=== PATIENT | male | born 1960 | race Caucasian/White ===

== ENCOUNTER 2020-11-11 12:18 | Inpatient (IN) | payer OTHER ==
[2020-11-11 15:17] LABS: BASO % 2.1 % (0-2.0); EOS % 2.6 % (0-4.5); HEMATOCRIT 33.3 % (35.4-49); HEMOGLOBIN 10.8 GM/dL (11.7-16.9); LYMPH % 19.4 % (8-40); MCH 28.1 pg (25.7-33.7); MCHC 32.5 g/dl (32.0-35.9); MEAN CELL VOLUME 86.4 fl (80-96); MEAN PLT VOLUME 9.3 fl (7.5-11.1); MONO % 5.6 % (3.8-10.2); NEUT % 70.3 % (42.8-82.8); PLATELET COUNT 221 K/MM3 (134-434); RBC 3.85 M/mm3 (4.00-5.60)
[2020-11-11 15:25] LABS: INR 1.07 (0.83-1.09); PROTHROMBIN TIME (PATIENT) 12.9 SEC (9.7-13.0)
[2020-11-11 15:27] LABS: ACTIVATED PTT 23.9 SECONDS (25.2-36.5)
[2020-11-11 15:48] LABS: CHLORIDE 98 mmol/L (98-107); POTASSIUM 4.7 mmol/L (3.5-5.1); SODIUM 134 mmol/L (136-145)
[2020-11-11 15:53] LABS: CALCIUM 8.2 mg/dL (8.5-10.1)
[2020-11-11 15:54] LABS: ALBUMIN 2.8 g/dl (3.4-5.0); ANION GAP 9 MMOL/L (8-16); BLOOD UREA NITROGEN 19.6 mg/dL (7-18); CO2 27 mmol/L (21-32); GLUCOSE,RANDOM 263 mg/dL (74-106); MAGNESIUM 2.6 mg/dL (1.8-2.4)
[2020-11-11 15:57] LABS: CREATININE 7.1 mg/dL (0.55-1.3); SGOT/AST 23 U/L (15-37); SGPT/ALT 17 U/L (13-61)
[2020-11-11 15:58] LABS: BILIRUBIN,TOTAL 0.6 mg/dL (0.2-1); TOT PROT 7.2 g/dl (6.4-8.2)
[2020-11-11 15:59] LABS: ALK PHOS 278 U/L (45-117)
[2020-11-11] MEDS ORDERED: ACETAMINOPHEN 325 MG TABLET (FP) PO ONE (23:22)
[2020-11-11] MEDS ORDERED: ACETAMINOPHEN 325 MG TABLET (FP) ONE (23:39)
[2020-11-12 05:59] VITALS: BMI 31.1
[2020-11-12 09:04] LABS: POTASSIUM 4.9 mmol/L (3.5-5.1)
[2020-11-12 09:06] LABS: CALCIUM 8.7 mg/dL (8.5-10.1)
[2020-11-12 09:07] LABS: ALBUMIN 2.9 g/dl (3.4-5.0); BLOOD UREA NITROGEN 29.4 mg/dL (7-18)
[2020-11-12 09:11] LABS: BILIRUBIN,TOTAL 0.5 mg/dL (0.2-1)
[2020-11-12 09:20] LABS: CREATININE 9.3 mg/dL (0.55-1.3)
[2020-11-12 09:56] LABS: BASO % 2.9 % (0-2.0); HEMATOCRIT 34.7 % (35.4-49); HEMOGLOBIN 11.5 GM/dL (11.7-16.9); LYMPH % 27.6 % (8-40); MCH 28.6 pg (25.7-33.7); MCHC 33.1 g/dl (32.0-35.9); MEAN CELL VOLUME 86.5 fl (80-96); MEAN PLT VOLUME 9.1 fl (7.5-11.1); MONO % 8.4 % (3.8-10.2); NEUT % 57.1 % (42.8-82.8); PLATELET COUNT 207 K/MM3 (134-434); RBC 4.01 M/mm3 (4.00-5.60); WHITE BLOOD COUNT 6.3 K/mm3 (4.0-10.0)
[2020-11-12] MEDS ORDERED: traMADol HCL 50 MG TABLET PO PRN (12:12)
[2020-11-12] MEDS: SEVELAMER CARBONATE 800 MG TAB (FP) PO SCH ×2 (13:19→17:15)
[2020-11-12] MEDS: GABAPENTIN 300 MG CAPSULE PO SCH ×2 (13:19→21:27)
[2020-11-12] MEDS ORDERED: SODIUM CHLORIDE 250 ML IV PRN (13:34)
[2020-11-12] MEDS: INSULIN SLIDING SCALE (NOVOLOG) 1 VIAL SQ SCH ×2 (15:46→21:30)
[2020-11-12] MEDS: INSULIN (LEVEMIR) 100 UNITS/ML UNITS SQ SCH (21:29)
[2020-11-12] MEDS: ATORVASTATIN CA 10 MG TABLET (FP) PO SCH (21:30)
[2020-11-12] MEDS: DONEPEZIL HCL 10 MG TABLET (FP) PO SCH (21:30)
[2020-11-13] MEDS: GABAPENTIN 300 MG CAPSULE PO SCH ×3 (06:35→22:32)
[2020-11-13] MEDS: INSULIN SLIDING SCALE (NOVOLOG) 1 VIAL SQ SCH ×4 (06:36→22:37)
[2020-11-13] MEDS: INSULIN (LEVEMIR) 100 UNITS/ML UNITS SQ SCH ×2 (06:51→22:37)
[2020-11-13] MEDS: SEVELAMER CARBONATE 800 MG TAB (FP) PO SCH ×3 (10:25→16:40)
[2020-11-13 10:36] LABS: CHOLESTEROL 99 mg/dL (50-200); LDL CHOLESTEROL (ONLY SJRH) 28 mg/dL (5-100); TRIGLYCERIDES 234 mg/dL (0-150)
[2020-11-13 10:40] LABS: HDL CHOLESTEROL 35 mg/dL (40-60)
[2020-11-13] MEDS: ASPIRIN 81 MG CHEWABLE TABLETS PO SCH (13:17)
[2020-11-13] MEDS: PANTOPRAZOLE 20 MG TABLET PO SCH (13:19)
[2020-11-13] MEDS: ATORVASTATIN CA 10 MG TABLET (FP) PO SCH (22:32)
[2020-11-13] MEDS: DONEPEZIL HCL 10 MG TABLET (FP) PO SCH (22:32)
[2020-11-14] MEDS: GABAPENTIN 300 MG CAPSULE PO SCH ×2 (07:00→13:38)
[2020-11-14] MEDS: INSULIN (LEVEMIR) 100 UNITS/ML UNITS SQ SCH (07:00)
[2020-11-14] MEDS: INSULIN SLIDING SCALE (NOVOLOG) 1 VIAL SQ SCH ×2 (07:01→11:20)
[2020-11-14] MEDS: SEVELAMER CARBONATE 800 MG TAB (FP) PO SCH ×2 (08:28→11:47)
[2020-11-14] MEDS: PANTOPRAZOLE 20 MG TABLET PO SCH (10:15)
[2020-11-14] MEDS: ASPIRIN 81 MG CHEWABLE TABLETS PO SCH (10:15)
[2020-11-14] MEDS ORDERED: HEPARIN NA (PORCINE) 5,000 UNITS/ML 1ML VIAL ONE ×2 (12:25→13:53)
[2020-11-14] MEDS ORDERED: LIDOCAINE HCL 1%, 10 MG/ML (20ML VIAL) ONE (12:25)
[2020-11-14] MEDS ORDERED: MIDAZOLAM HCL 2 MG/2 ML SINGLE DOSE VIAL ONE (13:23)
[2020-11-14] MEDS ORDERED: PROPOFOL 20 ML ONE (13:23)
[2020-11-14] MEDS ORDERED: ceFAZolin SODIUM 1 GM VIAL ONE (13:41)
[2020-11-14] MEDS ORDERED: LIDOCAINE HCL 1%, 10 MG/ML (20ML VIAL) INF ONE (13:45)
[2020-11-14] MEDS ORDERED: IOVERSOL 320 MG/ML ML IV ONE (13:45)
[2020-11-14] MEDS ORDERED: traMADol HCL 50 MG TABLET PO PRN (14:21)
[2020-11-14] MEDS ORDERED: oxyCODONE HCL 5 MG TABLET PO PRN (14:58)
[2020-11-14] MEDS ORDERED: ONDANSETRON 4 MG/2 ML VIAL IVPUSH PRN (14:58)
[2020-11-14] MEDS ORDERED: INSULIN SLIDING SCALE (NOVOLOG) 1 VIAL SQ SCH (16:30)
[2020-11-14] MEDS ORDERED: SEVELAMER CARBONATE 800 MG TAB (FP) PO SCH (17:30)
[2020-11-14 17:40] VITALS: BP 161/89; PULSE 75; TEMP 98.1
[2020-11-14 20:07] LABS: HEP B CORE AB, TOT Negative (Negative)
[2020-11-14] MEDS ORDERED: ATORVASTATIN CA 10 MG TABLET (FP) PO SCH (22:00)
[2020-11-14] MEDS ORDERED: INSULIN (LEVEMIR) 100 UNITS/ML UNITS SQ SCH (22:00)
[2020-11-14] MEDS ORDERED: DONEPEZIL HCL 10 MG TABLET (FP) PO SCH (22:00)
[2020-11-14] MEDS ORDERED: GABAPENTIN 300 MG CAPSULE PO SCH (22:00)
[2020-11-15] MEDS ORDERED: PANTOPRAZOLE 20 MG TABLET PO SCH (10:00)
[2020-11-15] MEDS ORDERED: ASPIRIN 81 MG CHEWABLE TABLETS PO SCH (10:00)
== END 2020-11-14 18:39 | disposition home or self-care (01) | DRG 299 ==
LOC: JER 12:18 → JERBED 19:41 → J6S 11-12 05:38
PROVIDERS: ADMIT Internal Medicine; ATTEND Family Medicine
PROC: 5A1D70Z Performance of Urinary Filtration, Intermittent, Less than 6 Hours Per Day (ICD-10-PCS; principal; 2020-11-13)
DX: E11.51 Type 2 diabetes mellitus with diabetic peripheral angiopathy without gangrene (principal); N18.6 End stage renal disease; I12.0 Hypertensive chronic kidney disease with stage 5 chronic kidney disease or end stage renal disease; I10 Essential (primary) hypertension; E78.5 Hyperlipidemia, unspecified; I70.202 Unspecified atherosclerosis of native arteries of extremities, left leg; M14.679 Charcot's joint, unspecified ankle and foot; E11.22 Type 2 diabetes mellitus with diabetic chronic kidney disease; Z99.2 Dependence on renal dialysis; Z89.511 Acquired absence of right leg below knee; Z20.822 Contact with and (suspected) exposure to COVID-19
CPT/HCPCS: 36415; 71045-TC-FY; 76000-TC-FY; 80053; 80061; 82550; 82962; 83036; 83721; 83735; 84484; 85025; 85610; 85730; 86704; 86706; 86707; 86708; 86709; 86803; 86850; 86900; 86901; 87340; 93005; 93010; 94760; 99285-25; C9803; G0463-25; J1644; U0003

== ENCOUNTER 2020-11-21 04:30 | Inpatient (IN) | payer OTHER ==
[2020-11-20 15:46] VITALS: BMI 31.0
[2020-11-21] MEDS ORDERED: PROPOFOL 20 ML ONE (09:08)
[2020-11-21] MEDS ORDERED: MIDAZOLAM HCL 2 MG/2 ML SINGLE DOSE VIAL ONE ×2 (09:08→11:03)
[2020-11-21] MEDS ORDERED: ceFAZolin SODIUM 1 GM VIAL ONE (09:58)
[2020-11-21] MEDS ORDERED: PATIENT'S OWN MEDICATION (NON-FORMULARY) (Insulin Glargine,Hum.Rec.Anlog [Basaglar Kwikpen SQ SCH (10:00)
[2020-11-21] MEDS ORDERED: POVIDONE-IODINE OINTMENT 10% - 28.4 GM TUBE ONE (10:22)
[2020-11-21] MEDS ORDERED: oxyCODONE HCL 5 MG TABLET PO PRN (10:24)
[2020-11-21] MEDS ORDERED: ONDANSETRON 4 MG/2 ML VIAL IVPUSH PRN ×2 (10:24→12:35)
[2020-11-21] MEDS ORDERED: GABAPENTIN 300 MG CAPSULE PO SCH (14:00)
[2020-11-21 14:43] LABS: BASO % 0.9 % (0-2.0); EOS % 1.7 % (0-4.5); HEMATOCRIT 37.6 % (35.4-49); HEMOGLOBIN 12.1 GM/dL (11.7-16.9); LYMPH % 17.1 % (8-40); MCH 28.5 pg (25.7-33.7); MCHC 32.3 g/dl (32.0-35.9); MEAN CELL VOLUME 88.5 fl (80-96); MEAN PLT VOLUME 9.6 fl (7.5-11.1); MONO % 4.3 % (3.8-10.2); PLATELET COUNT 183 K/MM3 (134-434); RBC 4.25 M/mm3 (4.00-5.60); RDW 15.9 % (11.9-15.9); WHITE BLOOD COUNT 10.8 K/mm3 (4.0-10.0)
[2020-11-21] MEDS ORDERED: HYDROmorphone HCl 2 MG/ML VIAL ONE (16:28)
[2020-11-21] MEDS: HYDROmorphone HCl 2 MG/ML VIAL IVPUSH PRN ×4 (16:30→17:00)
[2020-11-21] MEDS: GABAPENTIN 300 MG CAPSULE PO SCH ×2 (17:31→21:04)
[2020-11-21] MEDS ORDERED: morphine SULFATE 4 MG/ML VIAL ONE (17:47)
[2020-11-21] MEDS: SEVELAMER CARBONATE 800 MG TAB (FP) PO SCH (20:21)
[2020-11-21] MEDS: ATORVASTATIN CA 10 MG TABLET (FP) PO SCH (21:04)
[2020-11-21] MEDS: DONEPEZIL HCL 10 MG TABLET (FP) PO SCH (21:04)
[2020-11-21] MEDS: ASPIRIN 81 MG CHEWABLE TABLETS PO SCH (21:04)
[2020-11-21] MEDS: oxyCODONE HCL 5 MG TABLET PO PRN (21:04)
[2020-11-21] MEDS ORDERED: DONEPEZIL HCL 10 MG TABLET (FP) PO SCH (22:00)
[2020-11-21] MEDS ORDERED: ASPIRIN 81 MG CHEWABLE TABLETS PO SCH (22:00)
[2020-11-21] MEDS ORDERED: ATORVASTATIN CA 10 MG TABLET (FP) PO SCH (22:00)
[2020-11-21] MEDS: morphine SULFATE 4 MG/ML VIAL IVPUSH PRN (23:37)
[2020-11-22] MEDS: oxyCODONE HCL 5 MG TABLET PO PRN ×2 (05:34→21:17)
[2020-11-22] MEDS: GABAPENTIN 300 MG CAPSULE PO SCH ×3 (05:34→21:17)
[2020-11-22] MEDS: INSULIN (LEVEMIR) 100 UNITS/ML UNITS SQ SCH (06:30)
[2020-11-22] MEDS: morphine SULFATE 4 MG/ML VIAL IVPUSH PRN ×3 (07:25→23:52)
[2020-11-22] MEDS ORDERED: FAMOTIDINE 20 MG/50 ML IVPB 20 MG/50 ML MG IVPB ONE (07:55)
[2020-11-22] MEDS: SEVELAMER CARBONATE 800 MG TAB (FP) PO SCH ×3 (08:34→17:56)
[2020-11-22 08:59] LABS: EOS % 0.3 % (0-4.5); HEMATOCRIT 34.1 % (35.4-49); LYMPH % 9.8 % (8-40); MCH 28.8 pg (25.7-33.7); MCHC 32.3 g/dl (32.0-35.9); MEAN CELL VOLUME 89.3 fl (80-96); MEAN PLT VOLUME 10.1 fl (7.5-11.1); NEUT % 79.9 % (42.8-82.8); PLATELET COUNT 171 K/MM3 (134-434); RBC 3.82 M/mm3 (4.00-5.60); RDW 16.2 % (11.9-15.9); WHITE BLOOD COUNT 10.2 K/mm3 (4.0-10.0)
[2020-11-22 09:33] LABS: BLOOD UREA NITROGEN 43.8 mg/dL (7-18); CALCIUM 8.1 mg/dL (8.5-10.1)
[2020-11-22 09:43] LABS: CREATININE 11.1 mg/dL (0.55-1.3)
[2020-11-22] MEDS ORDERED: SODIUM CHLORIDE 250 ML IV PRN (09:48)
[2020-11-22] MEDS ORDERED: PANTOPRAZOLE 20 MG TABLET PO SCH (10:00)
[2020-11-22] MEDS: ACETAMINOPHEN 325 MG TABLET (FP) PO PRN (12:02)
[2020-11-22] MEDS: PANTOPRAZOLE 40 MG TABLET PO SCH (15:10)
[2020-11-22] MEDS ORDERED: INSULIN (NOVOLOG) ASPART 100 UNITS/ML 10ML VIAL ONE (17:48)
[2020-11-22] MEDS: ATORVASTATIN CA 10 MG TABLET (FP) PO SCH (21:17)
[2020-11-22] MEDS: ASPIRIN 81 MG CHEWABLE TABLETS PO SCH (21:17)
[2020-11-22] MEDS: DONEPEZIL HCL 10 MG TABLET (FP) PO SCH (21:19)
[2020-11-23] MEDS: oxyCODONE HCL 5 MG TABLET PO PRN ×4 (05:22→23:14)
[2020-11-23] MEDS: GABAPENTIN 300 MG CAPSULE PO SCH (05:23)
[2020-11-23] MEDS: INSULIN (LEVEMIR) 100 UNITS/ML UNITS SQ SCH (06:19)
[2020-11-23] MEDS: SEVELAMER CARBONATE 800 MG TAB (FP) PO SCH ×3 (10:41→17:03)
[2020-11-23] MEDS: PANTOPRAZOLE 40 MG TABLET PO SCH (10:42)
[2020-11-23 12:16] LABS: BASO % 1.3 % (0-2.0); EOS % 3.4 % (0-4.5); HEMATOCRIT 30.6 % (35.4-49); HEMOGLOBIN 9.9 GM/dL (11.7-16.9); LYMPH % 12.2 % (8-40); MCH 28.9 pg (25.7-33.7); MCHC 32.3 g/dl (32.0-35.9); MEAN CELL VOLUME 89.3 fl (80-96); MEAN PLT VOLUME 9.8 fl (7.5-11.1); MONO % 8.7 % (3.8-10.2); NEUT % 74.4 % (42.8-82.8); PLATELET COUNT 161 K/MM3 (134-434); RBC 3.42 M/mm3 (4.00-5.60); RDW 16.2 % (11.9-15.9); WHITE BLOOD COUNT 8.8 K/mm3 (4.0-10.0)
[2020-11-23 12:48] LABS: ALBUMIN 2.6 g/dl (3.4-5.0); BLOOD UREA NITROGEN 25.6 mg/dL (7-18); CALCIUM 8.2 mg/dL (8.5-10.1)
[2020-11-23 12:53] LABS: BILIRUBIN,TOTAL 0.4 mg/dL (0.2-1); TOT PROT 6.3 g/dl (6.4-8.2)
[2020-11-23 13:23] LABS: CREATININE 8.5 mg/dL (0.55-1.3)
[2020-11-23] MEDS: GABAPENTIN 100 MG CAPSULE PO SCH ×2 (15:59→22:50)
[2020-11-23] MEDS ORDERED: diphenhydrAMINE HCL 25 MG CAPSULE (FP) PO PRN (18:45)
[2020-11-23] MEDS: ASPIRIN 81 MG CHEWABLE TABLETS PO SCH (22:50)
[2020-11-23] MEDS: DONEPEZIL HCL 10 MG TABLET (FP) PO SCH (22:50)
[2020-11-23] MEDS: ATORVASTATIN CA 10 MG TABLET (FP) PO SCH (22:50)
[2020-11-24] MEDS: morphine SULFATE 4 MG/ML VIAL IVPUSH PRN (03:58)
[2020-11-24] MEDS: INSULIN (LEVEMIR) 100 UNITS/ML UNITS SQ SCH (06:31)
[2020-11-24] MEDS: GABAPENTIN 100 MG CAPSULE PO SCH ×3 (06:31→21:55)
[2020-11-24 08:42] LABS: BASO % 0.9 % (0-2.0); EOS % 4.4 % (0-4.5); HEMATOCRIT 30.5 % (35.4-49); HEMOGLOBIN 10.1 GM/dL (11.7-16.9); LYMPH % 10.2 % (8-40); MCH 29.1 pg (25.7-33.7); MCHC 32.9 g/dl (32.0-35.9); MEAN CELL VOLUME 88.4 fl (80-96); MEAN PLT VOLUME 9.7 fl (7.5-11.1); MONO % 6.8 % (3.8-10.2); NEUT % 77.7 % (42.8-82.8); PLATELET COUNT 204 K/MM3 (134-434); RBC 3.45 M/mm3 (4.00-5.60); RDW 16.2 % (11.9-15.9); WHITE BLOOD COUNT 10.4 K/mm3 (4.0-10.0)
[2020-11-24] MEDS: SEVELAMER CARBONATE 800 MG TAB (FP) PO SCH ×3 (08:51→17:52)
[2020-11-24] MEDS: oxyCODONE HCL 5 MG TABLET PO PRN (09:20)
[2020-11-24] MEDS: PANTOPRAZOLE 40 MG TABLET PO SCH (09:20)
[2020-11-24 09:25] LABS: CALCIUM 8.5 mg/dL (8.5-10.1)
[2020-11-24 09:26] LABS: ALBUMIN 2.6 g/dl (3.4-5.0)
[2020-11-24 09:27] LABS: BLOOD UREA NITROGEN 37.8 mg/dL (7-18)
[2020-11-24 09:30] LABS: BILIRUBIN,TOTAL 0.5 mg/dL (0.2-1); TOT PROT 6.6 g/dl (6.4-8.2)
[2020-11-24] MEDS ORDERED: EPOETIN ALFA-EPBX 3,000 UNIT/ML VIAL IVPUSH ONE (09:30)
[2020-11-24] MEDS ORDERED: SODIUM CHLORIDE 250 ML IV PRN (09:49)
[2020-11-24 10:21] LABS: CREATININE 10.8 mg/dL (0.55-1.3)
[2020-11-24] MEDS ORDERED: PT OWN MED DRAWER 7, Y5N ONE (12:17)
[2020-11-24] MEDS: POLYETHYLENE GLYCOL 3350 119 GM BTL PO SCH (15:38)
[2020-11-24] MEDS: ASPIRIN 81 MG CHEWABLE TABLETS PO SCH (21:55)
[2020-11-24] MEDS: ATORVASTATIN CA 10 MG TABLET (FP) PO SCH (21:55)
[2020-11-24] MEDS: DONEPEZIL HCL 10 MG TABLET (FP) PO SCH (21:55)
[2020-11-24] MEDS ORDERED: SENNOSIDES 8.6MG TABLET (FP) PO PRN (22:00)
[2020-11-25] MEDS: GABAPENTIN 100 MG CAPSULE PO SCH ×3 (05:26→21:08)
[2020-11-25] MEDS ORDERED: DEXTROSE 50%-WATER - 25 GM/50 ML VIAL IVPUSH ONE (05:51)
[2020-11-25] MEDS: INSULIN (LEVEMIR) 100 UNITS/ML UNITS SQ SCH (06:22)
[2020-11-25] MEDS: INSULIN SLIDING SCALE (NOVOLOG) 1 VIAL SQ SCH ×4 (07:17→21:11)
[2020-11-25 08:24] LABS: BASO % 0.6 % (0-2.0); EOS % 6.6 % (0-4.5); HEMATOCRIT 27.4 % (35.4-49); LYMPH % 8.9 % (8-40); MEAN CELL VOLUME 88.1 fl (80-96); MEAN PLT VOLUME 9.5 fl (7.5-11.1); MONO % 7.7 % (3.8-10.2); NEUT % 76.2 % (42.8-82.8); PLATELET COUNT 197 K/MM3 (134-434); RBC 3.11 M/mm3 (4.00-5.60); RDW 15.6 % (11.9-15.9); WHITE BLOOD COUNT 8.2 K/mm3 (4.0-10.0)
[2020-11-25 08:56] LABS: CALCIUM 8.2 mg/dL (8.5-10.1)
[2020-11-25 08:57] LABS: ALBUMIN 2.4 g/dl (3.4-5.0); BLOOD UREA NITROGEN 49.5 mg/dL (7-18)
[2020-11-25 09:00] LABS: BILIRUBIN,TOTAL 0.5 mg/dL (0.2-1)
[2020-11-25 09:01] LABS: TOT PROT 6.1 g/dl (6.4-8.2)
[2020-11-25] MEDS ORDERED: EPOETIN ALFA-EPBX 3,000 UNIT/ML VIAL IVPUSH ONE (09:30)
[2020-11-25] MEDS: SEVELAMER CARBONATE 800 MG TAB (FP) PO SCH ×3 (10:42→17:26)
[2020-11-25] MEDS: POLYETHYLENE GLYCOL 3350 119 GM BTL PO SCH (13:42)
[2020-11-25] MEDS: PANTOPRAZOLE 40 MG TABLET PO SCH (13:42)
[2020-11-25] MEDS: ASPIRIN 81 MG CHEWABLE TABLETS PO SCH (21:08)
[2020-11-25] MEDS: ATORVASTATIN CA 10 MG TABLET (FP) PO SCH (21:08)
[2020-11-25] MEDS: DONEPEZIL HCL 10 MG TABLET (FP) PO SCH (21:08)
[2020-11-26] MEDS: GABAPENTIN 100 MG CAPSULE PO SCH ×3 (05:39→21:31)
[2020-11-26] MEDS: INSULIN SLIDING SCALE (NOVOLOG) 1 VIAL SQ SCH ×4 (06:22→21:33)
[2020-11-26] MEDS: INSULIN (LEVEMIR) 100 UNITS/ML UNITS SQ SCH (06:55)
[2020-11-26 07:59] LABS: EOS % 6.8 % (0-4.5); HEMATOCRIT 28.5 % (35.4-49); HEMOGLOBIN 9.4 GM/dL (11.7-16.9); LYMPH % 11.9 % (8-40); MCH 28.9 pg (25.7-33.7); MCHC 32.8 g/dl (32.0-35.9); MEAN CELL VOLUME 88.2 fl (80-96); MEAN PLT VOLUME 9.2 fl (7.5-11.1); MONO % 10.5 % (3.8-10.2); NEUT % 69.8 % (42.8-82.8); PLATELET COUNT 235 K/MM3 (134-434); RBC 3.23 M/mm3 (4.00-5.60); RDW 15.9 % (11.9-15.9); WHITE BLOOD COUNT 5.8 K/mm3 (4.0-10.0)
[2020-11-26 08:16] LABS: ALBUMIN 2.3 g/dl (3.4-5.0); BLOOD UREA NITROGEN 31.5 mg/dL (7-18); CALCIUM 8.1 mg/dL (8.5-10.1)
[2020-11-26 08:27] LABS: BILIRUBIN,TOTAL 0.5 mg/dL (0.2-1)
[2020-11-26] MEDS: SEVELAMER CARBONATE 800 MG TAB (FP) PO SCH ×3 (09:09→17:13)
[2020-11-26] MEDS: PANTOPRAZOLE 40 MG TABLET PO SCH (09:09)
[2020-11-26] MEDS: POLYETHYLENE GLYCOL 3350 119 GM BTL PO SCH (11:09)
[2020-11-26] MEDS ORDERED: SODIUM CHLORIDE 250 ML IV PRN (12:19)
[2020-11-26] MEDS: ATORVASTATIN CA 10 MG TABLET (FP) PO SCH (21:30)
[2020-11-26] MEDS: DONEPEZIL HCL 10 MG TABLET (FP) PO SCH (21:31)
[2020-11-26] MEDS: ASPIRIN 81 MG CHEWABLE TABLETS PO SCH (21:31)
[2020-11-27] MEDS: GABAPENTIN 100 MG CAPSULE PO SCH ×3 (06:01→22:00)
[2020-11-27] MEDS: INSULIN SLIDING SCALE (NOVOLOG) 1 VIAL SQ SCH ×4 (06:02→22:01)
[2020-11-27] MEDS: INSULIN (LEVEMIR) 100 UNITS/ML UNITS SQ SCH (06:03)
[2020-11-27] MEDS: ACETAMINOPHEN 325 MG TABLET (FP) PO PRN (08:51)
[2020-11-27] MEDS: SEVELAMER CARBONATE 800 MG TAB (FP) PO SCH ×3 (08:53→18:00)
[2020-11-27] MEDS: PANTOPRAZOLE 40 MG TABLET PO SCH (09:42)
[2020-11-27] MEDS: POLYETHYLENE GLYCOL 3350 119 GM BTL PO SCH ×2 (09:42→09:45)
[2020-11-27] MEDS ORDERED: EPOETIN ALFA-EPBX 4,000 UNIT/ML VIAL IVPUSH ONE (10:15)
[2020-11-27] MEDS: oxyCODONE HCL 5 MG TABLET PO PRN (17:58)
[2020-11-27] MEDS: DONEPEZIL HCL 10 MG TABLET (FP) PO SCH (22:01)
[2020-11-27] MEDS: ASPIRIN 81 MG CHEWABLE TABLETS PO SCH (22:01)
[2020-11-27] MEDS: ATORVASTATIN CA 10 MG TABLET (FP) PO SCH (22:01)
[2020-11-28] MEDS: INSULIN (LEVEMIR) 100 UNITS/ML UNITS SQ SCH ×2 (06:17→06:20)
[2020-11-28] MEDS: GABAPENTIN 100 MG CAPSULE PO SCH ×3 (06:17→21:30)
[2020-11-28] MEDS: INSULIN SLIDING SCALE (NOVOLOG) 1 VIAL SQ SCH ×4 (06:17→21:31)
[2020-11-28] MEDS: oxyCODONE HCL 5 MG TABLET PO PRN (07:37)
[2020-11-28] MEDS: SEVELAMER CARBONATE 800 MG TAB (FP) PO SCH ×3 (08:06→17:14)
[2020-11-28] MEDS ORDERED: PT OWN MED DRAWER 7, Y5N ONE ×3 (09:28→19:26)
[2020-11-28] MEDS ORDERED: oxyCODONE HCL 5 MG TABLET PO PRN (09:32)
[2020-11-28] MEDS: PANTOPRAZOLE 40 MG TABLET PO SCH (09:38)
[2020-11-28] MEDS: POLYETHYLENE GLYCOL 3350 119 GM BTL PO SCH (09:38)
[2020-11-28] MEDS ORDERED: INSULIN (NOVOLOG) ASPART 100 UNITS/ML 10ML VIAL ONE ×3 (11:15→21:23)
[2020-11-28] MEDS: ASPIRIN 81 MG CHEWABLE TABLETS PO SCH (21:30)
[2020-11-28] MEDS: DONEPEZIL HCL 10 MG TABLET (FP) PO SCH (21:30)
[2020-11-28] MEDS: ATORVASTATIN CA 10 MG TABLET (FP) PO SCH (21:30)
[2020-11-29] MEDS: INSULIN SLIDING SCALE (NOVOLOG) 1 VIAL SQ SCH ×2 (06:21→12:43)
[2020-11-29] MEDS: INSULIN (LEVEMIR) 100 UNITS/ML UNITS SQ SCH (06:22)
[2020-11-29] MEDS: GABAPENTIN 100 MG CAPSULE PO SCH ×2 (06:24→16:10)
[2020-11-29] MEDS ORDERED: SODIUM CHLORIDE 250 ML IV PRN (11:03)
[2020-11-29] MEDS ORDERED: EPOETIN ALFA-EPBX 3,000 UNIT/ML VIAL SQ ONE (11:15)
[2020-11-29] MEDS: SEVELAMER CARBONATE 800 MG TAB (FP) PO SCH ×2 (12:50→12:51)
[2020-11-29] MEDS: PANTOPRAZOLE 40 MG TABLET PO SCH (12:51)
[2020-11-29] MEDS: POLYETHYLENE GLYCOL 3350 119 GM BTL PO SCH (12:52)
[2020-11-29 15:02] VITALS: BP 117/62; PULSE 90; TEMP 98.5
== END 2020-11-29 17:01 | DRG 40 ==
LOC: J2C 04:30 → EDSTATUS 08:30 → J8W 20:09
PROVIDERS: ADMIT Surgery Vascular Surgery; ATTEND Family Medicine
PROC: 0Y6J0Z1 Detachment at Left Lower Leg, High, Open Approach (ICD-10-PCS; principal; 2020-11-21 09:30)
DX: E11.610 Type 2 diabetes mellitus with diabetic neuropathic arthropathy (principal); N18.6 End stage renal disease; I12.0 Hypertensive chronic kidney disease with stage 5 chronic kidney disease or end stage renal disease; E87.1 Hypo-osmolality and hyponatremia; E78.5 Hyperlipidemia, unspecified; E11.22 Type 2 diabetes mellitus with diabetic chronic kidney disease; Z99.2 Dependence on renal dialysis; E11.649 Type 2 diabetes mellitus with hypoglycemia without coma
CPT/HCPCS: 36415; 36430; 36511; 71045-TC-FY; 80048; 80053; 82962; 85025; 86850; 86900; 86901; 86922; 88307-TC; 88311-TC; 94760; 97116-GP; 97162-GP; C9803; G0463-25; P9038; P9058; Q5106; U0003